=== PATIENT | male | born 1945 | race Caucasian/White ===

== ENCOUNTER 2022-10-02 21:33 | Inpatient (IN) | payer MEDICARE, OTHER ==
[~2022-10-02] VITALS: Ht 170.2 cm; Wt 69.4 kg
--- NOTE | 2022-10-02 21:50 | NUR ---
TO ER BED 9. BIBS C/O SUBSTERNAL PALPITATIONS/PRESSURE X1 HOUR . PT IS ALERT AND ORIENTED . RR EVEN AND NONLABORED. CONNECTED TO POX AND HEART MONITOR. AWAITING MD YODER
--- NOTE | 2022-10-02 22:00 | NUR ---
FULL STACK NET DEVELOPER: DR. NUNN [phone]
[2022-10-02] MEDS ORDERED: DILTIAZEM HCL 50 MG IV ONE (22:23)
[2022-10-02] MEDS ORDERED: DILTIAZEM HCL 25 MG IV ONE (22:24)
[2022-10-02] MEDS ORDERED: DILTIAZEM HCL IV 125 MG in IV NS 0.9% 100 ML IV PRN ×2 (22:30→23:30)
[2022-10-02] MEDS ORDERED: DILTIAZEM HCL 50 MG IV IV ONE (22:30)
[2022-10-02 22:34] LABS: HEMOGLOBIN 14.6 g/dL (13.5-17.5); MEAN CORPUSCULAR VOLUME 89 fL (80-96); WHITE BLOOD COUNT (AUTO) 8.6 K/uL (4.3-11.0)
[2022-10-02 22:40] LABS: BASOPHILS % (AUTO) 0.4 % (0.0-2.0); EOSINOPHILS % (AUTO) 19.3 % (0.0-6.0); HEMATOCRIT 45 % (39-51); LYMPHOCYTES # (AUTO) 0.7 K/uL (0.8-4.8); LYMPHOCYTES % (AUTO) 8.4 % (20.0-44.0); MEAN CORPUSCULAR HGB CONC 32 g/dl (31.0-36.0); MONOCYTES # (AUTO) 0.6 K/uL (0.1-1.30); MONOCYTES % (AUTO) 7.5 % (2.0-12.0); NEUTROPHILS # (AUTO) 5.5 K/uL (1.8-8.9); NEUTROPHILS % (AUTO) 64.4 % (43.0-81.0); PLATELET COUNT (AUTO) 213 K/uL (150-450); RED BLOOD CELL COUNT(AUTO) 5.07 MIL/uL (4.5-6.0)
[2022-10-02 22:51] LABS: CALCIUM, SERUM 9.4 mg/dL (8.5-10.1); CARBON DIOXIDE 28 mmol/L (21-32); CHLORIDE 103 mmol/L (98-107); CREATININE 1.2 mg/dL (0.6-1.3); GLUCOSE 159 mg/dL (74-106); POTASSIUM 3.5 mmol/L (3.5-5.1); SODIUM SERUM 138 mmol/L (136-145); UREA NITROGEN, BLOOD 26 mg/dL (7-18)
[2022-10-02 22:56] LABS: ALANINE AMINOTRANSFERASE 28 U/L (12-78); ALBUMIN 3.7 g/dL (3.4-5.0); ALKALINE PHOSPHATASE 97 U/L (46-116); ASPARTATE AMINOTRANSFERASE 27 U/L (15-37); BILIRUBIN,DIRECT 0.3 mg/dL (0.0-0.2); BILIRUBIN,TOTAL 1.3 mg/dL (0.2-1.0); TOTAL PROTEIN, SERUM 6.9 g/dL (6.4-8.2)
--- NOTE | 2022-10-02 23:10 | NUR ---
COVID SWAB COLLECTED
[2022-10-02] MEDS ORDERED: ONDANSETRON HCL/PF 4 MG/2 ML VIAL IVP PRN (23:30)
[2022-10-02] MEDS ORDERED: ZOLPIDEM TARTRATE 5 MG TABLET PO PRN (23:30)
[2022-10-02] MEDS ORDERED: MAGNESIUM HYDROXIDE 30 ML UDC PO PRN (23:30)
[2022-10-02] MEDS ORDERED: Z GUARD REMEDY 4 OZ OINT TP PRN (23:30)
[2022-10-02] MEDS ORDERED: ENOXAPARIN SODIUM 40 MG/0.4 ML DISP.SYRIN SQ SCH (23:30)
[2022-10-02] MEDS ORDERED: ACETAMINOPHEN 325 MG TABLET PO PRN (23:30)
[2022-10-02] MEDS ORDERED: MAG HYDROX/AL HYDROX/SIMETH 30 ML UDC PO PRN (23:30)
--- NOTE | 2022-10-03 00:01 | NUR ---
RN NOTE RECEIVED ER ADMISSION REPORT FROM RON LYNN. ALL PERTINENT ADMISSION INFO REGARDING PT NOTED. WILL WAIT FOR PT TO BE TRANSFERRED TO UNIT AND ADDRESS NEEDS ACCORDINGLY. MECHANICAL DESIGN ENGINEER PRODUCTS MADE AWARE.
--- NOTE | 2022-10-03 00:03 | NUR ---
REPORT GIVEN TO YOMAIRA VELASQUEZ FOR HAY
--- NOTE | 2022-10-03 00:45 | NUR ---
RN NOTE RECEIVED PT FROM ER VIA GURNEY ACCOMPANIED BY 2 ER STAFF AND TRANSFERRED TO BED INDEPENDENTLY. PT IS A/OX4 ON ROOM AIR WITH RESPIRATIONS EVEN AND UNLABORED. COMPREHENSIVE PHYSICAL ASSESSMENT AND PATIENT CARE DONE. RECEVED WITH ONGOING CARDIZEM DRIP @5MLS/HR. CALL LIGHT WITHIN REACH, SAFETY MEASURES. WILL CONTINUE MONITOR AND ASSESS THROUGHOUT THE SHIFT. WILL CARRY OUT MD ORDERS ACCORDINGLY. EDGE KITTER MADE AWARE.
[2022-10-03 01:00] VITALS: BP 127/73
[2022-10-03] MEDS ORDERED: DILTIAZEM HCL IV 125 MG in IV NS 0.9% 100 ML IV PRN (01:00)
[2022-10-03 03:34] LABS: BASOPHILS % (MANUAL) 0 % (0.0-2.0); EOSINOPHILS % (MANUAL) 3 % (0-4); LYMPHOCYTES % (MANUAL) 9 % (16-48); MONOCYTES % (MANUAL) 6 % (0-11.0); NEUTROPHILS % (MANUAL) 82 (42-76)
[2022-10-03 04:00] VITALS: BP 112/66
[2022-10-03 06:27] LABS: BASOPHILS % (AUTO) 0.5 % (0.0-2.0); EOSINOPHILS % (AUTO) 4.8 % (0.0-6.0); HEMATOCRIT 42 % (39-51); HEMOGLOBIN 13.8 g/dL (13.5-17.5); LYMPHOCYTES # (AUTO) 1.9 K/uL (0.8-4.8); MEAN CORPUSCULAR HGB CONC 33 g/dl (31.0-36.0); MEAN CORPUSCULAR VOLUME 89 fL (80-96); MONOCYTES # (AUTO) 1.2 K/uL (0.1-1.30); MONOCYTES % (AUTO) 13.7 % (2.0-12.0); PLATELET COUNT (AUTO) 188 K/uL (150-450); RED BLOOD CELL COUNT(AUTO) 4.73 MIL/uL (4.5-6.0); WHITE BLOOD COUNT (AUTO) 8.5 K/uL (4.3-11.0)
--- NOTE | 2022-10-03 06:59 | NUR ---
RN NOTE MED RECON DONE
--- NOTE | 2022-10-03 07:00 | NUR ---
RN CLOSING NOTE: PATIENT REMAINS IN ROOM IN NO SIGNS OF RESPIRATORY DISTRESS, PATIENT STILL ON ROOM AIR ;TOLERATING WELL SATURATING @ >95% SP02. SAFETY MEASURES IMPLEMENTED, BED IN LOWEST POSITION, LOCKED, SIDE RAILS UP, CALL LIGHT WITHIN REACH. ALL NEEDS AND ORDERS ADDRESSED DURING THE SHIFT. IV ACCESS MAINTAINED INTACT, SECURED AND FLUSHING WELL. ALL DUE MEDS GIVEN ORDERED & SCHEDULED ; PATIENT TOLERATED WELL. STILL WITH ONGING CARDIZEM DRIP RUNNING @5ML/HR. PATIENT KEPT CLEAN AND COMFORTABLE WITHIN THE SHIFT. PATIENT ENDORSED TO INCOMING SHIFT RN WITH STABLE VITAL SIGN AND FOR CONTINUITY OF CARE.
[2022-10-03] MEDS ORDERED: SERT50TA PO (07:06)
[2022-10-03] MEDS ORDERED: ESOM40CA PO (07:11)
[2022-10-03 07:13] LABS: ALANINE AMINOTRANSFERASE 30 U/L (12-78); ALBUMIN 3.2 g/dL (3.4-5.0); ALKALINE PHOSPHATASE 75 U/L (46-116); ASPARTATE AMINOTRANSFERASE 27 U/L (15-37); CALCIUM, SERUM 8.9 mg/dL (8.5-10.1); CARBON DIOXIDE 29 mmol/L (21-32); CHLORIDE 107 mmol/L (98-107); CREATININE 1.1 mg/dL (0.6-1.3); GLUCOSE 117 mg/dL (74-106); MAGNESIUM 2.3 mg/dL (1.8-2.4); PHOSPHORUS 3.3 mg/dL (2.5-4.9); SODIUM SERUM 140 mmol/L (136-145); TOTAL PROTEIN, SERUM 6.2 g/dL (6.4-8.2); UREA NITROGEN, BLOOD 23 mg/dL (7-18)
[2022-10-03] MEDS ORDERED: DAPA5TAB PO (07:13)
[2022-10-03] MEDS ORDERED: CARV6.252 PO (07:13)
[2022-10-03] MEDS ORDERED: ATOR40TA PO (07:13)
[2022-10-03] MEDS ORDERED: ASPI-1169 PO (07:13)
[2022-10-03] MEDS ORDERED: VITA1TAB56 PO (07:13)
[2022-10-03 07:26] LABS: CHOLESTEROL 150 mg/dL (<200); HDL CHOLESTEROL 57 mg/dL (40-60); LDL 78 mg/dL (0-99); TRIGLYCERIDES 65 mg/dL (30-150)
--- NOTE | 2022-10-03 07:30 | NUR ---
TD RN AM NOTE: PATIENT IN BED, AT BEDSIDE. ALERT/ORIENTED X 4, ON ROOM A, DENIES SOB, RESPIRATION UNLABORED, O2 SAT >95%, AFIB CONTR HR 93 ON MONITOR. DENIES CHEST PAIN/DISCOMFORT, LEFT AC G20 WITH CARDIZEM INFUSING AT 5 ML/HR. SITE CLEAR. CARDIAC DIET, BRP, AMBULATORY STAND BY ASSIST, POC DISCUSSED, VERBALIZED UNDERSTANDING. SAFETY MEASURES IMPLEMENTED, BED IN LOWEST POSITION, LOCKED, SIDE RAILS UP, CALL LIGHT WITHIN REACH. WILL CONT TO MONITOR.
[2022-10-03 08:00] VITALS: BP 126/66
--- NOTE | 2022-10-03 08:00 | NUR ---
RN NOTES DR. SKY AT BEDSIDE KEEP PATIENT NPO FOR POSSIBLE CARDIOVERSION
[2022-10-03] MEDS ORDERED: ENOXAPARIN SODIUM 40 MG/0.4 ML DISP.SYRIN SQ SCH (09:00)
--- NOTE | 2022-10-03 09:30 | NUR ---
RN NOTES DUE MEDS GIVEN. CONSENT SIGNED FOR CARDIOVERSION TODAY. NPO
[2022-10-03 12:00] VITALS: BP 133/74
--- NOTE | 2022-10-03 12:22 | NUR ---
RN NOTES PT TRANSFERRED TO ICU 258 FOR SCHEDULED PROCEDURE VIA ACLS PROTOCOL BEDSIDE REPORT GIVEN TO CARI VELASQUEZ FOR HAY
--- NOTE | 2022-10-03 12:30 | NUR ---
RN note Received patient from [facility] colleague RON Wu. Patient is alert and conscious, [id number], resting in bed. color television console monitor showed AF HR 91/min, with diltiazem drip running at 5ml/hr. BP 128/64mmHg, SpO2 99% RA. RR 18/min. Defib pad is attached to patient. Consent is checked with patient, confirming his signatures. Await synchronized cardioversion.
--- NOTE | 2022-10-03 13:15 | NUR ---
Synchronized cardioversion Put on 2L for patient via NC. customer service driver showed AF with HR 90/min. WALESKA Abad assessed patient and gave 5mg of propofol for the procedure. SpO2 99% all along. Cardioversion was done at 13:13, converted back to SR, HR 61/min. BP 108/61mmHg. Desaturated to 88% with 2L, increased oxygen to 10L via simple facemask, SpO2 increased back to 96%. Patient is awake at 13:25, alert and conscious. SpO2 100%, decreased oxygen back to 2L via NC. Stopped diltiazem drip as welll. Keep observation.
--- NOTE | 2022-10-03 15:30 | NUR ---
RN note Handover was given to RON Wu. Informed her about the change in meds regime: lovenox switching to eliquis and to discontinue diltiazem. Patient is transferred to [facility] with RN, cone former showed SR HR 60/min. SpO2 95% RA.
--- NOTE | 2022-10-03 15:53 | NUR ---
RN NOTES PATIENT BACK FROM ICU. S/P CARDIOVERSION, AO X 4, O2 SAT >95% ON RA. NO SOB, SR HR 73 ON MONITOR. DENIES ANY CHEST DISCOMFORT. WILL CONT TO MONITOR.
[2022-10-03 16:00] VITALS: BP 108/61
--- NOTE | 2022-10-03 16:00 | NUR ---
RN NOTES PER DR. YANG, PATIENT TO STAY OVERNIGHT. POSSIBLE DC [facility]
[2022-10-03] MEDS: CARVEDILOL 6.25 MG TABLET PO SCH (16:13)
[2022-10-03] MEDS: APIXABAN 5 MG TABLET PO SCH (16:14)
[2022-10-03] MEDS ORDERED: ATORVASTATIN 40 MG TABLET PO SCH (18:00)
--- NOTE | 2022-10-03 18:35 | NUR ---
TRANSPORTATION AGENT CLOSING NOTE: 106 PATIENT IN BED, AT BEDSIDE. ALERT/ORIENTED X 4, ON ROOM AIR, DENIES SOB, RESPIRATION UNLABORED, O2 SAT >95%, S/P CARDIOVERSION, SR HR 73 ON MONITOR. DENIES CHEST PAIN/DISCOMFORT, LEFT AC G20, FLUSHES WELL, SITE CLEAR. CARDIAC DIET, BRP, AMBULATORY STAND BY ASSIST, SAFETY MEASURES IMPLEMENTED, BED IN LOWEST POSITION, LOCKED, SIDE RAILS UP, CALL LIGHT WITHIN REACH. ALL NEEDS MET AT THIS TIME. WILL ENDORSE TO NEXT SHIFT FOR HAY. POSSIBLE DC TOMORROW
--- NOTE | 2022-10-03 19:10 | NUR ---
RN NOTES RECEIVED PT FOR CONTINUITY OF CARE. PATIENT A/OX4 IN NO S/SX OF ACUTE DISTRESS AT THIS TIME;S/P CARDIOVERSION. CURRENTLY ROOM AIR; WITH 02 SAT >95% AT THIS TIME.WITH IV ACCESS PATENT, INTACT AND FLUSHING WELL. WILL ENSURE SAFETY MEASURES WITHIN THE SHIFT. PATIENT BED ALARM IS ON. HEAD OF BED ELEVATED. BED IS LOCKED, IN LOWEST POSITION AND SIDE RAILS UP. CALL LIGHT WITHIN REACH OF THE PATIENT. WILL CONTINUE TO MONITOR AND REASSESS FOR ANY CHANGES AND WILL CARRY OUT ANY ONGOING AND ACTIVE MD ORDER.
[2022-10-03 20:00] VITALS: BP 107/42
[2022-10-04] VITALS: BP 105/38
[2022-10-04 04:00] VITALS: BP 120/63
--- NOTE | 2022-10-04 04:00 | NUR ---
RN NOTE PATIENT REMAINED TO BE IN NO SIGNS OF ACUTE RESPIRATORY DISTRESS, SAFE ENVIRONMENT MAINTAINED FOR PT. WILL CONTINUE TO MONITOR AND REASSESS FOR ANY CHANGES THROUGHOUT THE SHIFT.
[2022-10-04 06:50] LABS: BASOPHILS % (AUTO) 0.4 % (0.0-2.0); EOSINOPHILS % (AUTO) 5.2 % (0.0-6.0); HEMATOCRIT 41 % (39-51); HEMOGLOBIN 13.3 g/dL (13.5-17.5); LYMPHOCYTES # (AUTO) 1.9 K/uL (0.8-4.8); LYMPHOCYTES % (AUTO) 21.3 % (20.0-44.0); MEAN CORPUSCULAR HGB CONC 33 g/dl (31.0-36.0); MEAN CORPUSCULAR VOLUME 89 fL (80-96); MONOCYTES % (AUTO) 11.5 % (2.0-12.0); NEUTROPHILS # (AUTO) 5.4 K/uL (1.8-8.9); NEUTROPHILS % (AUTO) 61.6 % (43.0-81.0); PLATELET COUNT (AUTO) 183 K/uL (150-450); RED BLOOD CELL COUNT(AUTO) 4.57 MIL/uL (4.5-6.0); WHITE BLOOD COUNT (AUTO) 8.7 K/uL (4.3-11.0)
--- NOTE | 2022-10-04 07:00 | NUR ---
RN CLOSING NOTE: PATIENT REMAINS IN ROOM IN NO SIGNS OF RESPIRATORY DISTRESS, PATIENT STILL ON ROOM AIR ;TOLERATING WELL SATURATING @ >95% SP02. SAFETY MEASURES IMPLEMENTED, BED IN LOWEST POSITION, LOCKED, SIDE RAILS UP, CALL LIGHT WITHIN REACH. ALL NEEDS AND ORDERS ADDRESSED DURING THE SHIFT. IV ACCESS MAINTAINED INTACT, SECURED AND FLUSHING WELL. ALL DUE MEDS GIVEN ORDERED & SCHEDULED ; PATIENT TOLERATED WELL. POSSIBLE DC TODAY. PATIENT KEPT CLEAN AND COMFORTABLE WITHIN THE SHIFT. PATIENT ENDORSED TO INCOMING SHIFT RN WITH STABLE VITAL SIGN AND FOR CONTINUITY OF CARE.
[2022-10-04 07:05] LABS: CREATININE 1.1 mg/dL (0.6-1.3); MAGNESIUM 2.3 mg/dL (1.8-2.4); PHOSPHORUS 2.9 mg/dL (2.5-4.9); POTASSIUM 4.3 mmol/L (3.5-5.1)
--- NOTE | 2022-10-04 07:19 | NUR ---
RN NOTES RECEIVED PT FOR CONTINUITY OF CARE. PATIENT A/OX4 IN NO S/SX OF ACUTE DISTRESS AT THIS TIME;S/P CARDIOVERSION ON 10/03/22. CURRENTLY ROOM AIR; WITH 02 SAT >95% AT THIS TIME.WITH IV ACCESS PATENT, INTACT AND FLUSHING WELL. WILL ENSURE SAFETY MEASURES WITHIN THE SHIFT. PATIENT BED ALARM IS ON. HEAD OF BED ELEVATED. BED IS LOCKED, IN LOWEST POSITION AND SIDE RAILS UP. CALL LIGHT WITHIN REACH OF THE PATIENT.
[2022-10-04 08:00] VITALS: BP 130/64
[2022-10-04 08:45] VITALS: BP 130/64
[2022-10-04] MEDS: CARVEDILOL 6.25 MG TABLET PO SCH (08:45)
[2022-10-04] MEDS: APIXABAN 5 MG TABLET PO SCH (08:47)
[2022-10-04] MEDS ORDERED: SERTRALINE HCL 50 MG TABLET PO SCH (09:00)
[2022-10-04] MEDS ORDERED: DAPAGLIFLOZIN PROPANEDIOL 5 MG TABLET PO SCH (09:00)
[2022-10-04] MEDS ORDERED: PANTOPRAZOLE 40 MG VIAL IV SCH (09:00)
[2022-10-04] MEDS ORDERED: VITAMIN B COMP W-C 1 TAB TABLET PO SCH (09:00)
[2022-10-04] MEDS ORDERED: ASPIRIN 81 MG TAB.CHEW PO SCH (09:00)
[2022-10-04] MEDS ORDERED: APIX5TAB PO (13:25)
--- NOTE | 2022-10-04 14:00 | NUR ---
RN NOTE DISCHARGE INSTRUCTIONS REVIEWED WITH PATIENT, ALL QUESTIONS ANSWERED, PHARMACY CONFIRMED. PATIENT TAKEN TO FRONT LOBBY IN STABLE CONDITION ACCOMPANIED BY .
== END 2022-10-04 14:30 | disposition home or self-care (01) | DRG 310 ==
LOC: ER 21:35 → TELE-TD 10-03 00:06 → ICU 10-03 12:16 → TELE1 10-03 15:56
PROVIDERS: ADMIT Nurse Practitioner Acute Care; ATTEND Student in an Organized Health Care Education/Training Program
PROC: 5A2204Z Restoration of Cardiac Rhythm, Single (ICD-10-PCS; principal; 2022-10-03)
DX: I48.91 Unspecified atrial fibrillation (principal); I10 Essential (primary) hypertension; E78.5 Hyperlipidemia, unspecified; Z20.822 Contact with and (suspected) exposure to COVID-19; Z95.818 Presence of other cardiac implants and grafts; R79.89 Other specified abnormal findings of blood chemistry; I34.0 Nonrheumatic mitral (valve) insufficiency; Z79.82 Long term (current) use of aspirin; Z79.899 Other long term (current) drug therapy; E80.6 Other disorders of bilirubin metabolism; K76.1 Chronic passive congestion of liver; R73.03 Prediabetes
CPT/HCPCS: 36415; 71045-TC; 80048-TC; 80053-TC; 80061-TC; 80076-TC; 83735-TC; 83880; 84100-TC; 84484-TC; 85025-TC; 85730-TC; 87081-TC; 93307-TC; C9113; C9803; G0378; J1650; J2704; J3490; J7030; J7050